=== PATIENT | female | born 1960 | race Two or more races ===

== ENCOUNTER 2018-10-17 06:00 | Day surgery (SDC) | payer OTHER ==
[~2018-10-17 06:00] MED LIST: ENZYMATIC DIGE1 EACH PO; LIBRAX PO
[2018-10-17] MEDS ORDERED: RECTICARE30 GM TOP (11:35)
[2018-10-17] MEDS ORDERED: PERCOCET 5-3251 EACH PO (11:35)
== END 2018-10-17 16:10 | disposition home or self-care (01) ==
LOC: CIR.AMB 06:00
DX: D12.8 Benign neoplasm of rectum (principal)

== ENCOUNTER 2019-09-30 08:00 | Day surgery (SDC) | payer OTHER ==
[~2019-09-30 08:00] MED LIST changes: +PERCOCET 5-3251 EACH PO; +RECTICARE30 GM TOP
== END 2019-09-30 14:00 | disposition home or self-care (01) ==
LOC: AMB-ENDOS 08:00
PROVIDERS: ATTEND Surgery
DX: D12.8 Benign neoplasm of rectum (principal); Z20.828 Contact with and (suspected) exposure to other viral communicable diseases; K64.8 Other hemorrhoids